=== PATIENT | female | born 1970 | race Two or more races ===

== ENCOUNTER 2017-11-20 08:47 | Day surgery (SDC) | payer BC ==
[2017-11-17 13:15] LABS: BASOPHIL % 0.6 % (0-2)
[2017-11-17 13:17] LABS: PLATELET COUNT 438 x10^3mcL (130-400); RED CELL DISTRIBUTION WIDTH 18.1 % (11.5-14.5)
[2017-11-17 13:36] LABS: ALBUMIN 3.5 g/dL (3.4-5.0); ALKALINE PHOSPHATASE 87 U/L (46-116); ALT/SGPT 37 U/L (14-59); AST/SGOT 41 U/L (15-37); BILIRUBIN TOTAL 0.25 mg/dL (0.20-1.00); CALCIUM 8.8 mg/dL (8.5-10.1); CARBON DIOXIDE 29.5 mmol/L (21-32); CHLORIDE SERUM 103 mmol/L (98-107); CREATININE SERUM 0.7 mg/dL (0.6-1.0); GFR1 > 60 mL/min; GLUCOSE SERUM 143 mg/dL (74-106); POTASSIUM SERUM 3.2 mmol/L (3.5-5.1); SODIUM SERUM 139 mmol/L (136-145)
[~2017-11-20] VITALS: Ht 162.6 cm; Wt 113.4 kg
[2017-11-20 09:09] VITALS: BP 143/89
[2017-11-20 16:34] VITALS: BP 122/65
== END 2017-11-20 16:10 | disposition home or self-care (01) ==
LOC: MA 08:47 → OR 12:00 → MA 16:10
PROVIDERS: Surgery
PROC: 0HBT0ZX Excision of Right Breast, Open Approach, Diagnostic (ICD-10-PCS; 2017-11-20)
PROC: 0HBT0ZX Excision of Right Breast, Open Approach, Diagnostic (ICD-10-PCS; principal; 2017-11-20 12:00)
DX: D24.1 Benign neoplasm of right breast (principal); E87.6 Hypokalemia; E66.9 Obesity, unspecified; Z68.36 Body mass index [BMI] 36.0-36.9, adult
CPT/HCPCS: J2001; J2250; J2270; J2405; J2704; J3010; J3490; J7120

== ENCOUNTER 2020-03-14 07:04 | Day surgery (SDC) | payer BC, SELFPAY ==
[2020-03-08 11:30] LABS: BASOPHIL % 0.9 % (0-2); PLATELET COUNT 383 x10^3mcL (130-400); RED CELL DISTRIBUTION WIDTH 15.7 % (11.5-14.5)
[2020-03-08 11:42] LABS: ALBUMIN 3.5 g/dL (3.4-5.0); ALKALINE PHOSPHATASE 99 U/L (46-116); ALT/SGPT 69 U/L (14-59); AST/SGOT 42 U/L (15-37); BILIRUBIN TOTAL 0.2 mg/dL (0.20-1.00); CALCIUM 9.1 mg/dL (8.5-10.1); CARBON DIOXIDE 28.6 mmol/L (21-32); CHLORIDE SERUM 102 mmol/L (98-107); CREATININE SERUM 0.8 mg/dL (0.6-1.0); GFR1 > 60 mL/min; GLUCOSE SERUM 154 mg/dL (74-106); POTASSIUM SERUM 3.7 mmol/L (3.5-5.1); SODIUM SERUM 137 mmol/L (136-145); TOTAL PROTEIN, SERUM 7.7 g/dL (6.4-8.2)
[~2020-03-14] VITALS: Ht 157.5 cm; Wt 113.4 kg
[2020-03-14 07:45] VITALS: BP 147/87
[2020-03-14 17:46] VITALS: BP 113/66
== END 2020-03-14 17:30 | disposition home or self-care (01) ==
LOC: MA 07:04 → OR 11:30 → MA 17:30
PROVIDERS: ATTEND Surgery
DX: D24.2 Benign neoplasm of left breast (principal); D24.1 Benign neoplasm of right breast; Z11.59 Encounter for screening for other viral diseases
CPT/HCPCS: 88344; J0330; J0690; J1170; J2001; J2405; J2710; J3490; J7120; Q0092; Q9968; U0003-CS